=== PATIENT | male | born 1940 | race Caucasian/White ===

== ENCOUNTER → 2016-11-04 | Outpatient (CLI) | payer OTHER, BC ==
[2016-11-04 15:30] LABS: ASPARTATE AMINO TRANSFERASE 33 IU/L (21-57); BILIRUBIN,TOTAL 0.7 mg/dL (0.3-1.2); BLOOD UREA NITROGEN 32 mg/dL (7-22); CALCIUM 9.7 mg/dL (8.7-10.7); CHLORIDE 106 meq/L (98-112); GLUCOSE 64 mg/dL (78-110); HDL CHOLESTEROL 37 mg/dL (40-150); POTASSIUM 4.6 meq/L (3.8-5.2); SODIUM 140 meq/L (135-145); TOTAL PROTEIN 7.3 g/dL (6.1-8.0); TRIGLYCERIDES 194 mg/dL (44-200)
[2016-11-04 15:32] LABS: HEMOGLOBIN A1C 5.79 % (4.2-6.0); MEAN BLOOD GLUCOSE (CALC) 106.807 mg/dL
[2016-11-04 15:47] LABS: CREATININE, URINE 134.3 MG/DL (15-500)
== END ==
LOC: LAB 08:39
PROVIDERS: ATTEND Physician Assistant Medical
DX: E11.9 Type 2 diabetes mellitus without complications (principal); E03.9 Hypothyroidism, unspecified; E78.5 Hyperlipidemia, unspecified
CPT/HCPCS: 80053; 80061; 82043; 83036; 84443

== ENCOUNTER → 2017-02-03 | Outpatient (CLI) | payer OTHER, BC ==
[2017-02-03 15:02] LABS: BLOOD UREA NITROGEN 37 mg/dL (7-22); BUN/CREATININE RATIO 17.61 (6-20); CALCIUM 9.3 mg/dL (8.7-10.7); CHOL/HDL RATIO 3.97 RATIO (0-4.0); HDL CHOLESTEROL 36 mg/dL (40-150); SERUM ALBUMIN 4.3 g/dL (3.5-4.8); SERUM CHOLESTEROL 143 mg/dL (120-200)
[2017-02-03 15:03] LABS: HEMOGLOBIN A1C 5.66 % (4.2-6.0)
== END ==
LOC: LAB 09:05
PROVIDERS: ATTEND Physician Assistant Medical
DX: E11.9 Type 2 diabetes mellitus without complications (principal); I10 Essential (primary) hypertension; E03.9 Hypothyroidism, unspecified; E78.5 Hyperlipidemia, unspecified; N28.9 Disorder of kidney and ureter, unspecified
CPT/HCPCS: 80053; 80061; 83036; 84443

== ENCOUNTER → 2017-04-02 | Outpatient (CLI) | payer OTHER, BC ==
[2017-04-02 14:45] LABS: BLOOD UREA NITROGEN 26 mg/dL (7-22); BUN/CREATININE RATIO 14.44 (6-20); CALCIUM 9.9 mg/dL (8.7-10.7); SERUM ALBUMIN 4.2 g/dL (3.5-4.8)
== END ==
LOC: LAB 08:21
DX: N18.3 Chronic kidney disease, stage 3 (moderate) (principal)
CPT/HCPCS: 80069